=== PATIENT | male | born 1995 | race Caucasian/White ===

== ENCOUNTER 2019-08-16 16:32 | Emergency (ER) | payer OTHER ==
--- NOTE | 2019-08-16 17:21 | ER Document Report ---
ED Hip Pain/Injury - General Chief Complaint: Hip Pain Stated Complaint: HIP PAIN Time Seen by Provider: 08/16/19 17:15 Mode of Arrival: Ambulatory Information source: Patient Notes: 23-year-old male presented ED for complaint of left hip pain. He states he has been dealing with this pain since May. He states he went to medical and they told him he had a torn labrum with a cam deformity to the femoral head. He states that he cannot get back into pain management until 3 weeks from Monday because medical does not do pain management. He states [place] they put him on methocarbamol and Celebrex but they cannot do narcotics. He was going to pain management and they put him on the [place] but he has not been to pain management in about a month because they took him out of bed to try to do rehab and determine what kind of surgery they are going to do. He states when he went to his medical this morning they sent him to his physical therapy doctor who sent him to the [facility] ER who sent him to the [facility]. I have greeted and performed a rapid initial assessment of this patient. A comprehensive ED assessment and evaluation of the patient, analysis of test results and completion of medical decision making process will be conducted by an additional ED providers. - Related Data Allergies/Adverse Reactions: No Known Allergies Allergy (Verified 08/16/19 17:14)
--- NOTE | 2019-08-16 17:22 | ER Document Report ---
ED Medical Screen (RME) - General Chief Complaint: Hip Pain Stated Complaint: HIP PAIN Time Seen by Provider: 08/16/19 17:15 Mode of Arrival: Ambulatory Information source: Patient Notes: 23-year-old male presented to ED for complaint of left pain since May. He states he has been diagnosed with a torn labrum and cam deformity of the femoral head. He states he has been on Celebrex methocarbamol and he was on [place] with pain management. He is [employer] he has been to pain management which stopped a month ago he then went to his medical doctor who was trying to get him rehabbed and determine what type of surgery they will need to do. He states today he went to his medical doctor who sent him to his physical therapy doctor who sent him to the [facility] ER who sent him to [facility]. He states his medical doctor cannot give him narcotics so that is why he went to pain management. He states that he has a new referral that does not start for 3 weeks for pain management which he thinks is [facility]. He states the pain is getting worse to his left hip. I have greeted and performed a rapid initial assessment of this patient. A comprehensive ED assessment and evaluation of the patient, analysis of test results and completion of medical decision making process will be conducted by an additional ED providers. - Related Data Allergies/Adverse Reactions: No Known Allergies Allergy (Verified 08/16/19 17:14)
[2019-08-16] MEDS ORDERED: KETOROLAC TROMETHAMINE 60 MG/2 ML SDV IM ONE (17:28)
--- NOTE | 2019-08-16 17:59 | RADIOLOGY REPORT (SQ) ---
EXAM DESCRIPTION: HIP LEFT AP/LATERAL COMPLETED DATE/TIME: 08/16/2019 5:35 pm REASON FOR STUDY: pain increasing COMPARISON: None. NUMBER OF VIEWS: Two views. TECHNIQUE: AP pelvis and additional frog-leg view of the left hip. LIMITATIONS: None. FINDINGS: MINERALIZATION: Normal. LEFT HIP: No fracture or dislocation. No worrisome bone lesions. RIGHT HIP: No fracture or dislocation. No worrisome bone lesions. PUBIS AND ISCHIUM: No fracture. PELVIS: No fracture. SACRUM: No fracture or dislocation. No worrisome bone lesions. LOWER LUMBAR SPINE: No fracture or dislocation. No worrisome bone lesions. No significant disc disea se. SOFT TISSUES: No findings. OTHER: No other significant finding. IMPRESSION: NO RADIOGRAPHIC EVIDENCE OF ACUTE INJURY. TECHNICAL DOCUMENTATION: JOB ID: [id number] [place]-72 2010 [employer]- All Rights Reserved Reading location - IP/workstation name: [email or web address]
[2019-08-16] MEDS ORDERED: KETOROLAC TROMETHAMINE 60 MG/2 ML SDV ONE (19:52)
[2019-08-16] MEDS ORDERED: HYDROCODONE/ACETAMINOPHEN 5-325 MG (6 TAB/ER DISP) PO ONE (19:56)
--- NOTE | 2019-08-16 20:26 | ER Document Report ---
ED General - General Chief Complaint: Hip Pain Stated Complaint: HIP PAIN Time Seen by Provider: 08/16/19 17:15 Mode of Arrival: Ambulatory Notes: Patient is a 23-year-old male with no significant past medical history who presents to the emergency department the chief complaint of left hip pain that is been ongoing. He reports that he has a labrum tear and a "bad cam" in the left hip. He has been seeing sports medicine, was recently under the guidance of pain management and was released to physical therapy. He states that nothing is controlling his pain is been severe. He has been throughout the [facility] and was told finally by the [facility] folks to come here today for help with pain management. Patient denies any new fall, injury or trauma. Denies any numbness tingling or weakness. - Related Data Allergies/Adverse Reactions: No Known Allergies Allergy (Verified 08/16/19 17:14) Home Medications: Celebrex. [place]. Robaxin Past Medical History - General Information source: Patient - Social History Smoking Status: Current Every Day Smoker Frequency of alcohol use: None Drug Abuse: None Family History: None Patient has suicidal ideation: No Patient has homicidal ideation: No Review of Systems - Review of Systems Musculoskeletal: Joint pain -: Yes All other systems reviewed and negative Physical Exam - Vital signs Vitals: Temp Pulse Resp BP Pulse Ox 98.0 F 85 18 137/78 H 98 08/16/19 17:15 08/16/19 17:15 08/16/19 17:15 08/16/19 17:15 08/16/19 17:15 - General General appearance: Appears well, Alert In distress: None - Respiratory Respiratory status: No respiratory distress Chest status: Nontender Breath sounds: Normal Chest palpation: Normal - Cardiovascular Rhythm: Regular Heart sounds: Normal auscultation - Extremities Hip: Nontender - Anterior left pelvis, nontender left greater trochanter. Limit ed range of motion of the left hip secondary to pain. Patient tolerates internal rotation well but no forward flexion or abduction or external rotation. Gait limited by pain utilizing a single prong cane - Neurological Neuro grossly intact: Yes Cognition: Normal Orientation: AAOx4 [place] Coma Scale Eye Opening: Spontaneous [place] Coma Scale Verbal: Oriented [place] Coma Scale Motor: Obeys Commands [place] Coma Scale Total: 15 Speech: Normal Motor strength normal: LUE, RUE, LLE, RLE Sensory: Normal - Psychological Associated symptoms: Normal affect, Normal mood - Skin Skin Temperature: Warm Skin Moisture: Dry Skin Color: Normal Course - Re-evaluation Re-evalutation: 08/16/19 20:24 Given the patient's usage of the [facility] system, I cannot see any of his records nor his history of prescriptions on the database. He does have prescription pictures on his phone that are consistent with his story. He displays no aberrant behavior. He will be given a short course of pain medications and he will follow-up with his sports medicine provider's. Discussed with him the importance of outpatient follow-up and advised to return here or any ER immediately with any new, persistent or worsening symptoms. He verbalized understood and agreed. - Vital Signs Vital signs: Temp Pulse Resp BP Pulse Ox 98.0 F 85 18 137/78 H 98 08/16/19 17:15 08/16/19 17:15 08/16/19 17:15 08/16/19 17:15 08/16/19 17:15 Discharge - Discharge Clinical Impression: Hip pain Qualifiers: Laterality: left Qualified Code(s): M25.552 - Pain in left hip Condition: Stable Disposition: HOME, SELF-CARE Instructions: Chronic Pain Control ([facility]) Additional Instructions: Follow-up with your regular doctor in 2 to 3 days for reevaluation. Return here or any ER immediately with any new, persistent or worsening symptoms. Prescriptions: Hydrocodone/Acetaminophen [[place] 5-325 mg Tablet] 2 tab PO Q6 PRN #24 tablet PRN Reason:
[2019-08-16 20:43] VITALS: BP 136/77
== END 2019-08-16 20:40 | disposition home or self-care (01) ==
LOC: ER 16:32
DX: M25.552 Pain in left hip (principal); F17.200 Nicotine dependence, unspecified, uncomplicated
CPT/HCPCS: 99283; 96372; 73502; J1885